=== PATIENT | male | born 1955 | race Caucasian/White ===

== ENCOUNTER 2017-03-22 22:50 | Emergency (ER) | payer OTHER ==
[~2017-03-22] VITALS: Ht 177.8 cm; Wt 74.8 kg
[2017-03-22 22:50] VITALS: BP_SYST 161
[2017-03-22 23:59] VITALS: BP_SYST 158
== END 2017-03-22 23:59 ==
LOC: SED 22:50
DX: Z02.89 Encounter for other administrative examinations (principal); F10.129 Alcohol abuse with intoxication, unspecified; I10 Essential (primary) hypertension
CPT/HCPCS: 99283